=== PATIENT | female | born 1995 | race Caucasian/White ===

== ENCOUNTER → 2021-08-03 16:46 | Outpatient (CLI) | payer OTHER, MEDICAID, SELFPAY ==
[2021-08-04 13:43] LABS: Strep Grp B PCR POS for Grp B Strep
== END ==
PROVIDERS: Visit Provider Obstetrics & Gynecology
DX: Z34.83 Encounter for supervision of other normal pregnancy, third trimester (principal); Z3A.36 36 weeks gestation of pregnancy
CPT/HCPCS: 87653

== ENCOUNTER 2021-08-20 13:14 | Inpatient (IN) | payer OTHER, MEDICAID, SELFPAY ==
[2021-08-20 14:32] LABS: COVID19 -Nasal RAPID POSITIVE (Negative)
[2021-08-20] MEDS: PENICILLIN G POTASSIUM 5,000,000 UNIT in DEXTROSE 5% IN WATER 250 ML 250 UNIT IV (15:55)
[2021-08-20] MEDS: LACTATED RINGERS 1,000 ML 100 ML IV (15:56)
[2021-08-20 16:45] LABS: Add Manual Diff / Slide Review NO; Basophils Absolute Auto 100 /uL (0-100); Basophils Percent Auto 0.6 % (0-2); Eosinophils Absolute Auto 100 /uL (0-450); Eosinophils Percent Auto 0.7 % (2-4); Hematocrit 32.4 % (36-46); Hemoglobin 10.9 g/dL (12.0-16.0); Lymphocytes Absolute Auto 1800 /uL (1100-4500); Lymphocytes Percent Auto 15.7 % (25-40); Mean Corpuscular HGB Conc 33.5 % (30-36); Mean Corpuscular Hemoglobin 25.3 PG (26-34); Mean Corpuscular Volume 75.4 fL (80-100); Monocytes Absolute Auto 600 /uL (0-900); Neutrophils Absolute Auto 9200 /uL (1500-7000); Platelet Count 319 X10^3/uL (150-400); White Blood Cell Count 11.8 X10^3/uL (4.5-11.0)
[2021-08-20 17:49] VITALS: BP 129/67
[2021-08-20] MEDS: ACETAMINOPHEN 325 MG TABLET 650 MG PO (18:01)
--- NOTE | 2021-08-20 18:23 | P.HPOB_ITS ---
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 Estimated Delivery Date Method Current WG Current Estimate 08/30/21 LMP (Certain) 38w 4d Estimated Gestational Age (weeks): 38+4 : 2 Para: 1 care: good care (transferred from [place]), initiated at week # (9), number of visits (11) and pounds weight gain Dating criteria OB: LMP confirmed by 1st trimester US Ultrasounds: normal 1st trimester US and normal mid trimester US Obstetrical complications: none Medical complications OB: none Preadmission Labs Last OB Lab Results: Blood Type O Positive 08/20/21 15:00 Antibody Screen Negative 08/20/21 15:00 Hematocrit 32.4 % (36-46) L 08/20/21 16:36 Hemoglobin 10.9 g/dL (12.0-16.0) L 08/20/21 16:36 Group B Streptococcus (PCR) Pos for grp b strep H 08/03/21 16:4 6 -: Urine: negative Genetic Screens: Quad screen: Normal External Labs Blood type OB HPI: other (O+) HCT: 32.6 -: Antibody screen: negative, HBsAG: negative, HIV: negative, RPR/VDLR: negative, Chlamydia screen: unknown, Gonorrhea screen: unknown and Urine: negative -: Rubella: immune and Varicella: immune Genetic Screens: Quad screen: Normal Prior (ies) Past Pregnancies Del. Date GA/Weeks Labor Lgth Wt Sex Route Outcome Anesthesia Place Delv Breastfeed Preg Comp Name 09/29/18 39 7 lb 6 oz Male vaginal live - full term [place] 2 1/2 years induced hyper- [place] Evaluation Evaluation Baseline heart rate: 130 Variability: Moderate (11-25) monitor accelerations: Present Monitor Decelerations: Absent Uterine Contraction Intensity: Mild Status: Category l Dilation (cm): 2 Effacement (%): 75 station: -1 Position of cervix: mid PFSH Medical History (Updated 07/19/21 @ 22:23 by [place]) Anxiety Depression Headache Migraines Family History (Updated 07/19/21 @ 22:25 by [place]) Father Hypertension Hyperlipidemia Mental health problem Grandfather Diabetes mellitus Stroke Grandmother Cancer Social History marital status: number of children: 1 household members: spouse, family and children lives independently: Yes housing: house pets and animals: No occupational status: unemployed current occupational exposures/hazards: No special kim needs: No Smoking Status: Former smoker Meds Home Medications and Allergies Home Medications Medication Instructions Recorded Confirmed Type prenat.vits,marisol,ewa-rxku-kdkyo 1 tab PO DAILY 06/30/21 08/20/21 History sertraline 50 mg tablet 75 mg PO DAILY 06/30/21 08/20/21 History Allergies Allergy/AdvReac Type Severity Reaction Status Date / Time codeine AdvReac Mild rash, Verified 08/18/21 08:01 itching OB Exam Narrative Exam Narrative: Generally: A well-developed, well-nourished female, no acute distress, sitting up in bed. Lungs: Clear to auscultation bilaterally Cardiovascular: Regular rate and rhythm Fundal height: 40 cm Estimated weight: 7-1/2 lb Extremities: Trace edema, 1+ DTRs Objective Labs Result Diagrams: 08/20/21 16:36 Labs: Laboratory Results - last 24 hr 08/20/21 08/20/21 08/20/21 14:19 15:00 16:36 WBC 11.8 H RBC 4.30 Hgb 10.9 L Hct 32.4 L MCV 75.4 L MCH 25.3 L MCHC 33.5 RDW 16.0 H Plt Count 319 Neut % (Auto) 78.0 H Lymph % (Auto) 15.7 L [place] % (Auto) 5.0 Eos % (Auto) 0.7 L Baso % (Auto) 0.6 Neut # (Auto) 9200 H Lymph # (Auto) 1800 [place] # (Auto) 600 Eos # (Auto) 100 Baso # (Auto) 100 SARS-CoV-2 (PCR) Positive H Blood Type O Positive Antibody Screen Negative Assessment and Plan Assessment and Plan Assessment and Plan narrative: Assessment: 25-year-old 2 para 1 at 38-,4/7 weeks gestation with spontaneous rupture of membranes at 12:40 p.m. GBS positive status post 1 dose of IV penicillin Plan: Pitocin per protocol 2 Epidural as necessary Expected management to spontaneous vaginal delivery Time Spent with Patient Total time spent with greater than 50% in coordination of care (as documented) at patient's floor/unit and/or counseling patient:: 15-24 minutes
[2021-08-20] MEDS: OXYTOCIN PREMIX 30 UNIT/500 ML PLAST..BAG IV (19:43)
[2021-08-20] MEDS: PENICILLIN G POTASSIUM 3,000,000 UNIT/50 ML FROZ.PIGGY 100 UNIT IV (19:50)
--- NOTE | 2021-08-20 22:19 | PM.OBPRVD ---
Labor & Delivery Delivery date: 08/20/21 Intrapartal Events: Precipitous Labor < 3 hours Cervical ripening method: none Induction method: none Delivery augmentation: pitocin Delivery monitor: external FHT and external uterine Route of delivery: L&D Laceration Description: None Estimated blood loss (mL): 100 Anesthesia Type: Epidural Complications: None Narrative: Patient complete and pushed for 20 minutes. At 10:05 p.m., a live male delivered spontaneously in the ROSA M presentation. No nuchal cord. The remainder of the body delivered without difficulty and was placed on mom's abdomen. After the cord stopped pulsing, the cord was double clamped and cut. Cord bloods were obtained. Pitocin was given in the IV fluids. The placenta delivered intact with a three-vessel cord at 10:13 p.m.. The fundus was massaged to firm. There were no lacerations. Estimated blood loss 100 cc. Epidural analgesia. . Mom and infant stable to recovery. Baby 1: Infant gender: Male Presentation: vertex Position: Left Occiput Anterior Placenta delivery description: Spontaneous Cord Vessel Description: 3 Vessels and Clamped/Cut (After the cord stopped pulsing) Plan for aftercare: Routine care
[2021-08-21] MEDS: IBUPROFEN 600 MG TABLET PO ×2 (05:21→17:21)
[2021-08-21 06:37] LABS: Hematocrit 31.7 % (36-46); Hemoglobin 10.5 g/dL (12.0-16.0)
[2021-08-21] MEDS: ACETAMINOPHEN 325 MG TABLET 650 MG PO ×2 (07:41→14:40)
[2021-08-21 14:40] VITALS: TEMP 36.7
[2021-08-21 17:21] VITALS: TEMP 38.9
== END 2021-08-21 19:04 | disposition home or self-care (01) | DRG 560 ==
PROVIDERS: Admitting Provider Obstetrics & Gynecology; PCP Family Medicine; Referring Provider Obstetrics & Gynecology; Visit Provider Obstetrics & Gynecology
DX: O98.52 Other viral diseases complicating childbirth (principal); U07.1 COVID-19; Z3A.38 38 weeks gestation of pregnancy; Z37.0 Single live birth; O99.824 Streptococcus B carrier state complicating childbirth; O62.3 Precipitate labor
CPT/HCPCS: 01967; 36415; 59050; 59409; 85014; 85018; 85025; 86850; 86900; 86901; 87635; C9803; G0379; J2540; J2590